=== PATIENT | male | born 1985 | race Caucasian/White ===

== ENCOUNTER 2017-11-11 05:10 | Emergency (ER) | payer OTHER ==
[~2017-11-11] VITALS: Ht 190.5 cm; Wt 113.4 kg
[2017-11-11 05:27] LABS: ABSOLUTE NEUTROPHILS 5.5 thou/uL (1.4-8.2); BASOPHILS 0.8 % (0.0-2.0); EOSINOPHILS 2.2 % (0.0-3.0); HEMATOCRIT 44.2 % (42.0-52.0); HEMOGLOBIN 15.3 gm/dL (14.0-18.0); LYMPHOCYTES 32.7 % (24.0-44.0); MCH 30.2 pg (26.0-34.0); MCHC 34.6 g/dL (28.0-37.0); MCV 87.4 fL (80.0-100.0); MONOCYTES 11.4 % (1.0-8.0); PLATELET COUNT 325 thou/uL (150-400); POLYS 52.9 % (36.0-66.0); RBC 5.05 mil/uL (4.50-6.00); RDW 13.4 % (10.5-14.5); WBC 10.5 thou/uL (4.0-11.0)
[2017-11-11 05:39] LABS: CALCIUM 9.7 mg/dL (8.5-10.1); CREATININE 1.1 mg/dL (0.7-1.3); POTASSIUM 3.7 mmol/L (3.5-5.1)
[2017-11-11 05:45] LABS: ALBUMIN 4.2 g/dL (3.4-5.0); TOTAL BILIRUBIN 0.8 mg/dL (<0.1-1.0); TOTAL PROTEIN 8.1 g/dL (6.4-8.2)
[2017-11-11] MEDS ORDERED: MORPHINE SULFAT15 M3 PO (05:49)
[2017-11-11] MEDS ORDERED: ONDANSETRON HCL4 M2 PO (05:49)
[2017-11-11] MEDS ORDERED: FLOMAX0.4 MG PO (05:49)
[2017-11-11 07:21] LABS: URINE BILIRUBIN NEGATIVE (Negative); URINE BLOOD 3+ (Negative); URINE CLARITY CLEAR; URINE COLOR YELLOW; URINE GLUCOSE-RANDOM* NEGATIVE (Negative); URINE KETONES 2+ (Negative); URINE LEUKOCYTES-REFLEX NEGATIVE (Negative); URINE NITRITE-REFLEX NEGATIVE (Negative); URINE PROTEIN (DIPSTICK) NEGATIVE (Negative); URINE UROBILINOGEN 0.2 E.U./dl (0.2-1.0)
[2017-11-11 07:43] VITALS: BP 120/75
[2017-11-11 07:59] LABS: CASTS None Seen /LPF (None Seen); CRYSTALS None Seen /LPF (None Seen); SQUAMOUS None Seen /LPF (0-3); URINE RBC 3-10 Few /HPF (0-2); URINE WBC-REFLEX 0-5 Rare /HPF (0-5)
[2017-11-11 08:00] LABS: YEAST-REFLEX Present (None Seen)
== END 2017-11-11 07:43 | disposition home or self-care (01) ==
LOC: ER 05:10
PROVIDERS: Emergency Medicine
DX: N20.0 Calculus of kidney (principal); Z91.040 Latex allergy status